=== PATIENT | male | born 1985 | race Caucasian/White ===

== ENCOUNTER → 2020-08-24 | Outpatient (CLI) | payer OTHER, MEDICARE ==
[~2020-08-24] MED LIST: ALBU8.5H5 INH; AMLO10TA4 PO; ASA 81 MG PO; ASPI-515 PO; EFAV1TAB PO; ELVI1TAB3 PO; ENAL10TA9; FLUT100D HOMEINH; HCTZ; HYDR12.517 PO; INSU100V8 SQ; LAMO200T3 PO; LITH300C PO; LITH600C PO; LOSA50TA14 PO; METF-162 PO; MORP30TA81 PO; OXYC5CAP2 PO; PREG100C PO; TIAG4TAB18 PO; TIZA4CAP2 PO; TRAM50TA2 PO; VARE1TAB21 PO; VENL75CA PO; albuterol HOMEINH; atripla; flovent; lantus; zpack
== END | disposition home or self-care (01) ==
LOC: CFH 10:44
PROVIDERS: ATTEND Orthopaedic Surgery
DX: M19.071 Primary osteoarthritis, right ankle and foot (principal); M25.771 Osteophyte, right ankle; M25.871 Other specified joint disorders, right ankle and foot; Q66.89 Other specified congenital deformities of feet